=== PATIENT | male | born 1970 | race African-American/Black ===

== ENCOUNTER 2021-06-08 16:08 | Emergency (ER) | payer SELFPAY ==
[~2021-06-08] VITALS: Ht 182.9 cm; Wt 136.0 kg
[~2021-06-08 16:08] MED LIST: ALLO100T PO; AMLO-186 PO; ASPI-424 PO; ATOR10TA60 PO; D-ME473S14 PO; DOXA2TAB2 PO; DULO60CA45 PO; HYDR-2145 PO; LEVO-101 PO; LOSA100T14 PO; MECL12.582 PO; METO25TA4 PO; NITR0.4T22 SL; OMEP20CA16 PO; ONDA4TAB7 PO; POTA20TA4 PO
[2021-06-08] MEDS ORDERED: DOXA2TAB2 PO (16:49)
[2021-06-08] MEDS ORDERED: ALLO100T PO (16:49)
[2021-06-08] MEDS ORDERED: ASPI-964 PO (16:49)
[2021-06-08] MEDS ORDERED: OMEP20TA8 PO (16:49)
[2021-06-08] MEDS ORDERED: LEVO100T5 PO (16:49)
[2021-06-08] MEDS ORDERED: ATOR10TA60 PO (16:49)
[2021-06-08] MEDS ORDERED: AMLO-186 PO (16:49)
[2021-06-08] MEDS ORDERED: LOSA100T14 PO (16:49)
[2021-06-08] MEDS ORDERED: POTA20TA40 PO (16:49)
[2021-06-08] MEDS ORDERED: HYDR-2145 PO (16:49)
[2021-06-08] MEDS ORDERED: METO-239 PO (16:49)
--- NOTE | 2021-06-08 16:50 | PHYS DOC ---
Past Medical History Past Medical History: CAD, GERD, High Cholesterol, Hypertension, Hypothyroid Additional Past Medical Histor: Gout, BPH (CA DELACRUZ) Past Surgical History: Pacemaker ([facility] DELACRUZ) Smoking Status: Never Smoker Alcohol Use: Rarely (CA DELACRUZ) General Adult EDM: Chief Complaint: MEDICATION REFILL HPI: HPI: Patient is a 51 year old male with history of hypertension, hypothyroid, gout, and GERD who presents for medication refill. Patient states he was recently incarcerated, but he was released due to overturned charges. He was admitted from for dizziness and elevated blood pressure. He was discharged w ith some medications, but has run out of almost all of them at this point. He does not currently have a primary care provider. Patient reports he is on Medicaid and is waiting for a doctor to be assigned to him. Patient has no complaints at this time, he states "I feel great right now." (CA DELACRUZ) Review of Systems: Review of Systems: Constitutional: Denies fever or chills. Eyes: Denies change in visual acuity. HENT: Denies nasal congestion or sore throat. Respiratory: Denies cough or shortness of breath. Cardiovascular: Denies chest pain or edema. GI: Denies abdominal pain, nausea, vomiting, bloody stools or diarrhea. : Denies dysuria and hematuria. Musculoskeletal: Denies back pain or joint pain. Integument: Denies rash or other skin lesions. Neurologic: Denies headache, focal weakness or sensory changes. Endocrine: Denies polyuria or polydipsia. Psychiatric: Denies depression or anxiety. (CA DELACRUZ) Heart Score: C/O Chest Pain: No ([facility] DELACRUZ) Allergies: Allergies: Allergies Coded Allergies Type Severity Reaction Last Updated Verified shrimp Allergy Intermediate 05/18/21 Yes (CA DELACRUZ) Physical Exam: PE: Constitutional: Obese, otherwise well developed, well nourished, no acute distress, non-toxic appearance. Cardiovascular: Heart rate regular rhythm, no murmur. Lungs & Thorax: Bilateral breath sounds clear to auscultation. Skin: Warm, dry, no erythema, no rash. Back: No tenderness, no CVA tenderness. Extremities: No tenderness, no cyanosis, no clubbing, ROM intact, no edema. Neurologic: Alert and oriented X 3, normal motor function, normal sensory function, no focal deficits noted. (CA DELACRUZ) Course & Med Decision Making: Course & Med Decision Making Pertinent Labs and Imaging studies reviewed. (See chart for details) Patient's blood pressure is elevated here in the department, however he states he has not taken two of his blood pressure medications today, because he has run out. He will be provided with 25 mg metoprolol p.o. here in the department. Otherwise, patient has no complaints and will be discharged with prescriptions for HLD, HTN, hypothyroid, gout, GERD. Patient was provided with a pamphlet that has physicians associated with [facility] so that he might see someone while waiting for Medicaid assignment. Patient understands and is agreeable to discharge plan. (CA DELACRUZ) Dragon Disclaimer: Dragon Disclaimer: This electronic medical record was generated, in whole or in part, using a voice recognition dictation system. (CA DELACRUZ) Departure Departure Impression: Primary Impression: Medication refill Additional Impressions: Hypertension Qualified Codes: I10 - Essential (primary) hypertension Hyperlipidemia Qualified Codes: E78.5 - Hyperlipidemia, unspecified History of gout GERD (gastroesophageal reflux disease) Qualified Codes: K21.9 - Gastro-esophageal reflux disease without esop hagitis Hypothyroid Qualified Codes: E03.9 - Hypothyroidism, unspecified Disposition: 01 HOME / SELF CARE / HOMELESS Condition: STABLE Referrals: NO PCP (PCP) Patient Instructions: Health Maintenance, Males, Hypertension, [id number] Additional Instructions: As discussed, you should call one of the primary care physicians and the pamphlet provided to you as soon as possible to schedule an appointment. It may take a couple of weeks, but prescriptions were sent in for the medications that you have run out of. Please return to the emergency department if you develop any new symptoms. Scripts Hydrochlorothiazide (HYDROCHLOROTHIAZIDE TABLET ) 25 Mg Tablet 25 MG PO BID for DIURETIC, #60 TAB 0 Refills Prov: CA DELACRUZ 06/08/21 Potassium Bicarbonate/Cit Ac (EFFER-K 20 MEQ TABLET EFF) 20 Meq Tablet.eff 1 TAB PO DAILY for 30 Days, #30 TAB 0 Refills Prov: CA DELACRUZ 06/08/21 Omeprazole (OMEPRAZOLE) 20 Mg Tablet.dr 1 TAB PO DAILY, #30 TAB 0 Refills Prov: CA DELACRUZ 06/08/21 Amlodipine Besylate (AMLODIPINE BESYLATE) 5 Mg Tablet 5 MG PO DAILY, #30 TAB Prov: CA DELACRUZ 06/08/21 Aspirin (LO-DOSE ASPIRIN EC) 81 Mg Tablet.dr 81 MG PO DAILY, #30 TAB.SR Prov: CA DELACRUZ 06/08/21 Losartan Potassium (LOSARTAN POTASSIUM) 100 Mg Tablet 100 MG PO DAILY for HYPERTENSION, #30 TAB Prov: CA DELACRUZ 06/08/21 Allopurinol (ALLOPURINOL) 100 Mg Tablet 1 TAB PO DAILY, #30 TAB 0 Refills Prov: CA DELACRUZ 06/08/21 Metoprolol Succinate (METOPROLOL SUCCINATE ( XL )) 25 Mg Tab.er.24h 1 TAB PO BID, #60 TAB 0 Refills Prov: CA DELACRUZ 06/08/21 Levothyroxine Sodium (LEVOTHYROXINE SODIUM) 100 Mcg Tablet 1 TAB PO DAILY, #30 TAB 0 Refills Prov: CA DELACRUZ 06/08/21 Doxazosin Mesylate (DOXAZOSIN MESYLATE) 2 Mg Tablet 1 TAB PO DAILY, #30 TAB 0 Refills Prov: CA DELACRUZ 06/08/21 Atorvastatin Calcium (ATORVASTATIN CALCIUM) 10 Mg Tablet 1 TAB PO DAILY, #30 TAB 0 Refills Prov: CA DELACRUZ 06/08/21 Attending Signature Attending Signature I have reviewed the PA/POT PRESS OPERATOR's note and plan of care. I was available for consultation as needed during the patient's visit in the emergency department. I agree with the clinical impression, plan, and disposition. (ROBEL GRANGER DO) CA DELACRUZ Jun 08, 2021 16:50 ROBEL GRANGER DO Jun 08, 2021 18:22
[2021-06-08] MEDS ORDERED: METOPROLOL TART IMMED RELEASE 25 MG TABLET. PO ONE (17:00)
[2021-06-08 17:10] VITALS: BP 183/96
== END 2021-06-08 17:11 | disposition home or self-care (01) ==
LOC: ER 16:08
DX: I10 Essential (primary) hypertension (principal); E78.5 Hyperlipidemia, unspecified; K21.9 Gastro-esophageal reflux disease without esophagitis; E03.9 Hypothyroidism, unspecified; Z76.0 Encounter for issue of repeat prescription; E78.00 Pure hypercholesterolemia, unspecified; I25.10 Atherosclerotic heart disease of native coronary artery without angina pectoris; M10.9 Gout, unspecified; Z95.0 Presence of cardiac pacemaker; Z91.013 Allergy to seafood
CPT/HCPCS: 99283